=== PATIENT | male | born 1950 | race Caucasian/White ===

== ENCOUNTER 2017-06-30 05:09 | Inpatient (IN) ==
[2017-06-17 11:15] LABS: Apearance,Urine CLEAR (Clear); Bilirubin,Urine Negative (Negative); Blood, Urine Negative (Negative); Glucose,Urine (UA) Negative (Negative); Ketones,Urine 5 mg/dL (Negative); Mucus,Urine Occasional /LPF (Occasional); Nitrite,Urine Negative (Negative); Protein,Urine Negative; RBC,Urine 8 /HPF (0-4); Urine Color Yellow (Yellow); Urine Specific Gravity 1.021 (1.001-1.035); WBC,Urine <1 /HPF (0-6)
[2017-06-17 11:17] LABS: Basophils # 0.1 10*3/uL (0.0-0.2); Eosinophils # 0.4 10*3/uL (0.0-0.87); Eosinophils % 6.6 % (0.00-10.9); Hematocrit 35.9 VOL% (42.0-52.0); Hemoglobin 12.5 GM/DL (14.0-18.0); Immature Granulocytes % 0.2 %; Immature Granulocytes Absolute 0.01 #; Lymphocytes # 2.6 10*3/uL (1.4-4.0); Lymphocytes % 45.3 % (21.2-54.2); Mean Corpuscular HGB Conc 34.8 GM/DL (32-36); Mean Corpuscular Hemoglobin 31 PG (27-34); Mean Corpuscular Volume 88.2 FL (87-102); Mean Platelet Volume 10.3 FL (9.6-12.0); Monocytes # 0.7 10*3/uL (0.11-0.8); Monocytes % 11.7 % (1.7-12.7); Neutrophils % 35.2 % (38.7-73.9); Platelet Count 167 T/CUMM (130-400); Red Blood Count 4.07 MC/CUMM (3.8-5.5); Red Cell Distribution Width 11.9 % (9.3-17.3); White Blood Count 5.8 T/CUMM (4-12)
[2017-06-17 11:24] LABS: PT Patient Result 10.1 SECS; Partial Thromboplastin Time 28.7 SECS (0-40)
[2017-06-17 11:44] LABS: Albumin 3.6 G/DL (3.4-5.0); Band Neutrophils 5 % (0-10); Bilirubin,Total 0.5 MG/DL (0.2-1.0); Calcium 8.7 MG/DL (8.5-10.1); Eosinophils 9 % (0-10); Lymphocytes 45 % (20-55); Nucleated Red Blood Cells 3 (0-5); Osmolality,Calculated 259.7 MOS/KG (273-304); Platelet Estimate Normal; Potassium 4.3 MMOL/L (3.5-5.1); Segmented Neutrophils 39 % (50-85); Total Cells Counted 100; Total Protein 6.7 G/DL (6.4-8.3)
[2017-06-30] MEDS ORDERED: VANCOMYCIN INJ 1,000 MG in SODIUM CHLORIDE 0.9% 250 ML IV ONE (06:00)
[2017-06-30] MEDS ORDERED: ceFAZolin 1,000 MG in SYRINGE 1 EACH IV ONE (06:00)
[2017-06-30] MEDS ORDERED: ceFAZolin 1,000 MG VIAL ONE (08:10)
[2017-06-30] MEDS ORDERED: VANCOMYCIN 1,000 MG VIAL ONE (08:10)
[2017-06-30] MEDS: LACTATED RINGERS 1,000 ML IV SCH (08:15)
[2017-06-30 09:30] LABS: Barbiturates Screen,Urine Negative (Negative); Benzodiazepines Screen,Urine Negative (Negative); Cannabinoid Screen,Urine Negative (Negative); Opiate Screen,Urine Negative (Negative); Phencyclidine Screen,Urine Negative (Negative)
[2017-06-30] MEDS ORDERED: TRANEXAMIC ACID 1,000 MG/10 ML VIAL IV ONE (11:11)
[2017-06-30] MEDS ORDERED: PROMETHAZINE 25 MG/1 ML VIAL IM PRN (12:02)
[2017-06-30] MEDS ORDERED: HYDROmorphone 2 MG/1 ML VIAL IV PRN (12:02)
[2017-06-30] MEDS ORDERED: NALOXONE 0.4 MG/ML VIAL IV PRN (12:02)
[2017-06-30] MEDS ORDERED: ONDANSETRON 4 MG/2 ML VIAL IV PRN ×2 (12:02→12:31)
[2017-06-30] MEDS ORDERED: LACTULOSE 20 GM/30 ML UDCUP PO PRN (12:02)
[2017-06-30] MEDS ORDERED: BISACODYL 10 MG SUPP RECTAL PRN (12:02)
[2017-06-30] MEDS ORDERED: MAGNESIUM HYDROXIDE SUSP 30 ML UDCUP PO PRN (12:02)
[2017-06-30] MEDS ORDERED: PROPOFOL 200 MG/20 ML VIAL IV ONE (12:17)
[2017-06-30] MEDS ORDERED: MIDAZOLAM 2 MG/2 ML VIAL ONE (12:18)
[2017-06-30] MEDS ORDERED: fentaNYL 100 MCG/2 ML VIAL ONE (12:18)
[2017-06-30] MEDS ORDERED: KETAMINE 500 MG/10 ML VIAL ONE (12:18)
[2017-06-30] MEDS ORDERED: LACTATED RINGERS 1,000 ML IV ONE (12:18)
[2017-06-30] MEDS ORDERED: ROPIVACAINE 0.5% 30 ML VIAL ONE (12:20)
[2017-06-30] MEDS ORDERED: ONDANSETRON 4 MG/2 ML VIAL ONE (12:36)
[2017-06-30] MEDS ORDERED: HYDROmorphone 2 MG/1 ML VIAL ONE (12:36)
[2017-06-30] MEDS: HYDROmorphone 2 MG/1 ML VIAL IV PRN ×4 (12:39→13:00)
[2017-06-30] MEDS ORDERED: HYDROmorphone PCA 30 MG/30 ML SYRINGE IV ONE (13:03)
[2017-06-30] MEDS: HYDROmorphone PCA 30 MG/30 ML SYRINGE IV SCH (13:08)
[2017-06-30] MEDS ORDERED: MEPERIDINE 25 MG/1 ML VIAL ONE (13:13)
[2017-06-30] MEDS ORDERED: MEPERIDINE 25 MG/1 ML VIAL IV PRN (13:14)
[2017-06-30] MEDS ORDERED: MORPHINE 2 MG/1 ML SYRINGE IV ONE (13:22)
[2017-06-30] MEDS ORDERED: MORPHINE 10 MG/1 ML VIAL ONE (13:44)
[2017-06-30] MEDS ORDERED: MORPHINE 10 MG/1 ML VIAL IV ONE (14:00)
[2017-06-30] MEDS ORDERED: INFLUENZA VIRUS VACCINE 0.5 ML SYRINGE IM ONE (15:32)
[2017-06-30] MEDS: ceFAZolin 2,000 MG in PREMIX 1 EACH IV SCH (15:35)
[2017-06-30] MEDS: LUBIPROSTONE 24 MCG CAPSULE PO SCH (20:58)
[2017-06-30] MEDS: FONDAPARINUX 2.5 MG/0.5 ML SYRINGE SUBCUT SCH (20:58)
[2017-06-30] MEDS: DOCUSATE SODIUM 100 MG CAPSULE PO SCH (20:58)
[2017-06-30] MEDS: risperiDONE 1 MG TABLET PO SCH (20:58)
[2017-06-30] MEDS: MAGNESIUM OXIDE 400 MG TABLET PO SCH (20:59)
[2017-06-30] MEDS: METOPROLOL SUCCINATE XL 50 MG TABLET PO SCH (20:59)
[2017-06-30] MEDS: OXcarbazepine 300 MG TABLET PO SCH (20:59)
[2017-06-30] MEDS: TEMAZEPAM 7.5 MG CAPSULE PO PRN (21:22)
[2017-07-01] MEDS: TEMAZEPAM 7.5 MG CAPSULE PO PRN ×2 (00:49→20:50)
[2017-07-01] MEDS: ceFAZolin 2,000 MG in PREMIX 1 EACH IV SCH (00:49)
[2017-07-01 07:19] LABS: Basophils # 0.1 10*3/uL (0.0-0.2); Basophils % 0.6 % (0.0-0.8); Eosinophils # 0.1 10*3/uL (0.0-0.87); Eosinophils % 0.7 % (0.00-10.9); Hematocrit 31.7 VOL% (42.0-52.0); Immature Granulocytes % 0.3 %; Immature Granulocytes Absolute 0.03 #; Lymphocytes # 1.9 10*3/uL (1.4-4.0); Lymphocytes % 20.9 % (21.2-54.2); Mean Corpuscular HGB Conc 34.7 GM/DL (32-36); Mean Corpuscular Hemoglobin 30 PG (27-34); Mean Corpuscular Volume 87.6 FL (87-102); Mean Platelet Volume 10.5 FL (9.6-12.0); Monocytes # 0.9 10*3/uL (0.11-0.8); Monocytes % 10.2 % (1.7-12.7); Neutrophils % 67.3 % (38.7-73.9); Platelet Count 178 T/CUMM (130-400); Red Blood Count 3.62 MC/CUMM (3.8-5.5); White Blood Count 8.9 T/CUMM (4-12)
[2017-07-01 07:44] LABS: Calcium 8.2 MG/DL (8.5-10.1); Osmolality,Calculated 266.4 MOS/KG (273-304); Potassium 4.2 MMOL/L (3.5-5.1)
[2017-07-01] MEDS ORDERED: VORTIOXETINE HYDROBROMIDE 5 MG PO SCH (09:00)
[2017-07-01] MEDS: DILTIAZEM CD 180 MG CAPSULE PO SCH (10:34)
[2017-07-01] MEDS: LUBIPROSTONE 24 MCG CAPSULE PO SCH ×2 (10:34→20:50)
[2017-07-01] MEDS: LORATADINE 10 MG TABLET PO SCH (10:34)
[2017-07-01] MEDS: DOCUSATE SODIUM 100 MG CAPSULE PO SCH ×2 (10:35→20:51)
[2017-07-01] MEDS: FUROSEMIDE 20 MG TABLET PO SCH (10:35)
[2017-07-01] MEDS: MAGNESIUM OXIDE 400 MG TABLET PO SCH ×2 (10:35→20:50)
[2017-07-01] MEDS: PANTOPRAZOLE 40 MG TABLET PO SCH (10:35)
[2017-07-01] MEDS: risperiDONE 1 MG TABLET PO SCH ×2 (10:35→20:50)
[2017-07-01] MEDS: ESCITALOPRAM 10 MG TABLET PO SCH (10:35)
[2017-07-01] MEDS: ATORVASTATIN 40 MG TABLET PO SCH (10:35)
[2017-07-01] MEDS: METOPROLOL SUCCINATE XL 50 MG TABLET PO SCH ×2 (10:36→20:50)
[2017-07-01] MEDS: DOXEPIN 25 MG CAPSULE PO SCH (10:36)
[2017-07-01] MEDS: OXcarbazepine 300 MG TABLET PO SCH ×2 (10:39→20:50)
[2017-07-01] MEDS: HYDROmorphone PCA 30 MG/30 ML SYRINGE IV SCH (15:28)
[2017-07-01] MEDS: LACTATED RINGERS 1,000 ML IV SCH (18:25)
[2017-07-01] MEDS: FONDAPARINUX 2.5 MG/0.5 ML SYRINGE SUBCUT SCH (20:50)
[2017-07-01] MEDS: diphenhydrAMINE CAP 25 MG CAPSULE PO PRN (20:50)
[2017-07-02] MEDS: LACTATED RINGERS 1,000 ML IV SCH ×2 (04:45→08:54)
[2017-07-02] MEDS: diphenhydrAMINE CAP 25 MG CAPSULE PO PRN ×2 (06:40→20:57)
[2017-07-02 07:09] LABS: Basophils % 0.4 % (0.0-0.8); Eosinophils # 0.3 10*3/uL (0.0-0.87); Eosinophils % 2.7 % (0.00-10.9); Hematocrit 30.3 VOL% (42.0-52.0); Hemoglobin 10.3 GM/DL (14.0-18.0); Immature Granulocytes % 0.4 %; Immature Granulocytes Absolute 0.04 #; Lymphocytes # 2.8 10*3/uL (1.4-4.0); Lymphocytes % 29.9 % (21.2-54.2); Mean Corpuscular Hemoglobin 30 PG (27-34); Mean Corpuscular Volume 88.1 FL (87-102); Mean Platelet Volume 11.4 FL (9.6-12.0); Monocytes # 0.9 10*3/uL (0.11-0.8); Monocytes % 9.8 % (1.7-12.7); Neutrophils # 5.3 10*3/uL (1.4-7.4); Neutrophils % 56.8 % (38.7-73.9); Platelet Count 176 T/CUMM (130-400); Red Blood Count 3.44 MC/CUMM (3.8-5.5); Red Cell Distribution Width 12.2 % (9.3-17.3); White Blood Count 9.3 T/CUMM (4-12)
[2017-07-02] MEDS: ESCITALOPRAM 10 MG TABLET PO SCH (09:43)
[2017-07-02] MEDS: LUBIPROSTONE 24 MCG CAPSULE PO SCH ×2 (09:43→20:57)
[2017-07-02] MEDS: FUROSEMIDE 20 MG TABLET PO SCH (09:43)
[2017-07-02] MEDS: risperiDONE 1 MG TABLET PO SCH ×2 (09:43→20:57)
[2017-07-02] MEDS: LORATADINE 10 MG TABLET PO SCH (09:44)
[2017-07-02] MEDS: ATORVASTATIN 40 MG TABLET PO SCH (09:44)
[2017-07-02] MEDS: OXcarbazepine 300 MG TABLET PO SCH ×2 (09:44→20:57)
[2017-07-02] MEDS: METOPROLOL SUCCINATE XL 50 MG TABLET PO SCH ×2 (09:44→20:59)
[2017-07-02] MEDS: PANTOPRAZOLE 40 MG TABLET PO SCH (09:44)
[2017-07-02] MEDS: DOCUSATE SODIUM 100 MG CAPSULE PO SCH ×2 (09:44→20:57)
[2017-07-02] MEDS: DOXEPIN 25 MG CAPSULE PO SCH (09:44)
[2017-07-02] MEDS: MAGNESIUM OXIDE 400 MG TABLET PO SCH ×2 (09:44→20:57)
[2017-07-02] MEDS: DILTIAZEM CD 180 MG CAPSULE PO SCH (09:44)
[2017-07-02] MEDS: FONDAPARINUX 2.5 MG/0.5 ML SYRINGE SUBCUT SCH (20:58)
[2017-07-03] MEDS: MAGNESIUM OXIDE 400 MG TABLET PO SCH (09:03)
[2017-07-03] MEDS: risperiDONE 1 MG TABLET PO SCH (09:03)
[2017-07-03] MEDS: DOXEPIN 25 MG CAPSULE PO SCH (09:03)
[2017-07-03] MEDS: ESCITALOPRAM 10 MG TABLET PO SCH (09:03)
[2017-07-03] MEDS: DOCUSATE SODIUM 100 MG CAPSULE PO SCH (09:04)
[2017-07-03] MEDS: OXcarbazepine 300 MG TABLET PO SCH (09:04)
[2017-07-03] MEDS: METOPROLOL SUCCINATE XL 50 MG TABLET PO SCH (09:04)
[2017-07-03] MEDS: FUROSEMIDE 20 MG TABLET PO SCH (09:04)
[2017-07-03] MEDS: DILTIAZEM CD 180 MG CAPSULE PO SCH (09:04)
[2017-07-03] MEDS: LUBIPROSTONE 24 MCG CAPSULE PO SCH (09:04)
[2017-07-03] MEDS: LORATADINE 10 MG TABLET PO SCH (09:04)
[2017-07-03] MEDS: PANTOPRAZOLE 40 MG TABLET PO SCH (09:04)
[2017-07-03] MEDS: ATORVASTATIN 40 MG TABLET PO SCH (09:05)
[2017-07-03 16:32] VITALS: BP 123/71
== END 2017-07-03 17:00 | disposition swing bed (61) | DRG 470 ==
LOC: N.OR 05:09 → N.SDSINP 05:10 → N.3E 12:02
PROVIDERS: ADMIT Orthopaedic Surgery; ATTEND Orthopaedic Surgery

== ENCOUNTER 2017-09-24 12:22 | Inpatient (IN) ==
[2017-09-24] MEDS ORDERED: ENOXAPARIN 100 MG/ML SYRINGE SUBCUT STA (12:37)
[2017-09-24] MEDS ORDERED: ASPIRIN 325 MG TABLET PO STA (12:37)
[2017-09-24] MEDS ORDERED: ONDANSETRON 4 MG/2 ML VIAL IV PRN (12:37)
[2017-09-24] MEDS ORDERED: MORPHINE 2 MG/1 ML SYRINGE IV PRN (12:37)
[2017-09-24] MEDS ORDERED: NITROGLYCERIN 2% OINT 1 INCH/GM PACK TOP STA (12:44)
[2017-09-24] MEDS ORDERED: ALUM/MAG/SIMETH/LIDO VISC 1:1 30 ML BOTTLE PO STA (12:44)
[2017-09-24] MEDS ORDERED: NITROGLYCERIN SL 0.4 MG TABLET SL PRN (12:44)
[2017-09-24 12:53] LABS: Basophils # 0.1 10*3/uL (0.0-0.2); Basophils % 0.8 % (0.0-0.8); Eosinophils # 0.1 10*3/uL (0.0-0.87); Eosinophils % 2.2 % (0.00-10.9); Hematocrit 40.1 VOL% (42.0-52.0); Hemoglobin 12.8 GM/DL (14.0-18.0); Immature Granulocytes % 0.2 %; Immature Granulocytes Absolute 0.01 #; Lymphocytes # 2.6 10*3/uL (1.4-4.0); Lymphocytes % 43.3 % (21.2-54.2); Mean Corpuscular HGB Conc 31.9 GM/DL (32-36); Mean Corpuscular Hemoglobin 30 PG (27-34); Mean Corpuscular Volume 94.1 FL (87-102); Mean Platelet Volume 11.1 FL (9.6-12.0); Monocytes # 0.5 10*3/uL (0.11-0.8); Neutrophils # 2.6 10*3/uL (1.4-7.4); Neutrophils % 44.5 % (38.7-73.9); Platelet Count 158 T/CUMM (130-400); Red Blood Count 4.26 MC/CUMM (3.8-5.5); Red Cell Distribution Width 15.8 % (9.3-17.3); White Blood Count 5.9 T/CUMM (4-12)
[2017-09-24] MEDS ORDERED: NITROGLYCERIN 2% OINT 1 INCH/GM PACK TOP ONE (12:58)
[2017-09-24] MEDS ORDERED: ENOXAPARIN 120 MG/0.8 ML SYRINGE SUBCUT ONE (12:58)
[2017-09-24] MEDS ORDERED: ASPIRIN 325 MG TABLET ONE (12:59)
[2017-09-24] MEDS ORDERED: ALUM/MAG/SIMETH/LIDO VISC 1:1 30 ML BOTTLE PO ONE (12:59)
[2017-09-24 13:08] LABS: Calcium 8.1 MG/DL (8.5-10.1); Osmolality,Calculated 286.1 MOS/KG (273-304); Potassium 4.1 MMOL/L (3.5-5.1)
[2017-09-24 13:19] LABS: Alanine Aminotransferase 30 U/L (16-61); Albumin 3.3 G/DL (3.4-5.0); Alkaline Phosphatase 91 U/L (45-117); Aspartate Amino Transferase 19 U/L (0-37); Bilirubin,Total < 0.39 MG/DL (0.2-1.0); Blood Urea Nitrogen 18 MG/DL (7-18); Calcium 8.5 MG/DL (8.5-10.1); Glucose 127 MG/DL (74-106); PT Patient Result 10.2 SECS; Partial Thromboplastin Time 24.9 SECS (0-40); Potassium 4.2 MMOL/L (3.5-5.1); Sodium 143 MMOL/L (136-145); Total Protein 6.3 G/DL (6.4-8.3)
[2017-09-24] MEDS ORDERED: ACETAMINOPHEN 325 MG TABLET PO PRN (14:52)
[2017-09-24] MEDS ORDERED: traZODone 50 MG TABLET PO PRN (17:20)
[2017-09-24] MEDS ORDERED: IBUPROFEN 800 MG TABLET PO PRN (17:20)
[2017-09-24] MEDS: busPIRone 10 MG TABLET PO SCH (22:01)
[2017-09-24] MEDS: OXcarbazepine 300 MG TABLET PO SCH (22:01)
[2017-09-24] MEDS: risperiDONE 1 MG TABLET PO SCH (22:01)
[2017-09-25] MEDS: risperiDONE 1 MG TABLET PO SCH ×2 (08:52→21:17)
[2017-09-25] MEDS: ATORVASTATIN 40 MG TABLET PO SCH (08:52)
[2017-09-25] MEDS: busPIRone 10 MG TABLET PO SCH ×3 (08:52→21:18)
[2017-09-25] MEDS: OXcarbazepine 300 MG TABLET PO SCH ×2 (08:52→21:16)
[2017-09-25] MEDS: ESCITALOPRAM 10 MG TABLET PO SCH (08:53)
[2017-09-25] MEDS ORDERED: DILTIAZEM CD 180 MG CAPSULE PO SCH (09:00)
[2017-09-25] MEDS ORDERED: LOSARTAN 50 MG TABLET PO SCH (09:00)
[2017-09-25 11:45] LABS: Apearance,Urine CLEAR (Clear); Bilirubin,Urine Negative (Negative); Blood, Urine Negative (Negative); Glucose,Urine (UA) Negative (Negative); Ketones,Urine Negative (Negative); Nitrite,Urine Negative (Negative); Protein,Urine Negative; Squamous Epithelial Cell,Urine Occasional /HPF (0-10); Urine Color Yellow (Yellow); Urine Specific Gravity 1.012 (1.001-1.035); Urine Urobilinogen < 2.0 EU/DL (0.2-1.0); WBC,Urine <1 /HPF (0-6)
[2017-09-25] MEDS ORDERED: ENOXAPARIN 40 MG/0.4 ML SYRINGE SUBCUT SCH (12:00)
[2017-09-25 12:38] LABS: Barbiturates Screen,Urine Negative (Negative); Benzodiazepines Screen,Urine Negative (Negative); Cannabinoid Screen,Urine Negative (Negative); Opiate Screen,Urine Negative (Negative); Phencyclidine Screen,Urine Negative (Negative)
[2017-09-25] MEDS ORDERED: REGADENOSON 0.4 MG/5 ML SYRINGE IV ONE (14:55)
[2017-09-25] MEDS: traZODone 50 MG TABLET PO SCH (21:17)
[2017-09-26 06:08] LABS: Risk Ratio 4.81; VLDL CHOLESTEROL 29.2 MG/DL
[2017-09-26] MEDS: LOSARTAN 50 MG TABLET PO SCH (06:28)
[2017-09-26 08:50] LABS: Basophils # 0.1 10*3/uL (0.0-0.2); Basophils % 0.8 % (0.0-0.8); Eosinophils # 0.2 10*3/uL (0.0-0.87); Eosinophils % 2.1 % (0.00-10.9); Hematocrit 45.2 VOL% (42.0-52.0); Immature Granulocytes % 0.1 %; Immature Granulocytes Absolute 0.01 #; Lymphocytes % 55.1 % (21.2-54.2); Mean Corpuscular HGB Conc 32.7 GM/DL (32-36); Mean Corpuscular Hemoglobin 30 PG (27-34); Mean Corpuscular Volume 92.1 FL (87-102); Mean Platelet Volume 10.7 FL (9.6-12.0); Monocytes # 0.5 10*3/uL (0.11-0.8); Monocytes % 6.3 % (1.7-12.7); Neutrophils # 2.6 10*3/uL (1.4-7.4); Neutrophils % 35.6 % (38.7-73.9); Platelet Count 176 T/CUMM (130-400); Red Blood Count 4.91 MC/CUMM (3.8-5.5); Red Cell Distribution Width 15.2 % (9.3-17.3); White Blood Count 7.2 T/CUMM (4-12)
[2017-09-26 08:58] LABS: Hemoglobin 14.8 GM/DL (14.0-18.0)
[2017-09-26 09:09] LABS: Calcium 9.1 MG/DL (8.5-10.1); Osmolality,Calculated 280.3 MOS/KG (273-304); Potassium 4.4 MMOL/L (3.5-5.1)
[2017-09-26 09:14] LABS: Eosinophils 4 % (0-10); Lymphocytes 52 % (20-55); Segmented Neutrophils 39 % (50-85); Total Cells Counted 100
[2017-09-26 09:15] LABS: Atypical Lymphocytes Few; Hypochromasia 1+; Microcytosis 1+; Platelet Estimate Adequate
[2017-09-26] MEDS ORDERED: diphenhydrAMINE CAP 25 MG CAPSULE PO ONE ×2 (09:30→09:31)
[2017-09-26] MEDS ORDERED: SODIUM CHLORIDE 0.9% 1,000 ML IV SCH ×3 (09:30→10:00)
[2017-09-26] MEDS ORDERED: ceFAZolin 1,000 MG VIAL IRRIG ONE ×2 (09:30→09:31)
[2017-09-26] MEDS ORDERED: DIAZEPAM 5 MG TABLET PO ONE ×2 (09:30→09:31)
[2017-09-26] MEDS ORDERED: ceFAZolin 1,000 MG in SYRINGE 1 EACH IV ONE (09:31)
[2017-09-26] MEDS ORDERED: diphenhydrAMINE CAP 50 MG CAPSULE ONE (09:35)
[2017-09-26] MEDS ORDERED: ceFAZolin 1,000 MG VIAL ONE (09:51)
[2017-09-26] MEDS ORDERED: MIDAZOLAM 2 MG/2 ML VIAL ONE ×2 (09:51→10:17)
[2017-09-26] MEDS ORDERED: LIDOCAINE 1% 20 ML VIAL ONE (09:51)
[2017-09-26] MEDS ORDERED: fentaNYL 100 MCG/2 ML VIAL ONE (09:51)
[2017-09-26] MEDS ORDERED: TISSUE ADHESIVE 1 EACH APPLICATOR TOP ONE (09:51)
[2017-09-26] MEDS ORDERED: diphenhydrAMINE 50 MG/1 ML VIAL ONE (10:16)
[2017-09-26] MEDS: risperiDONE 1 MG TABLET PO SCH ×2 (12:00→20:56)
[2017-09-26] MEDS: busPIRone 10 MG TABLET PO SCH ×3 (12:00→20:56)
[2017-09-26] MEDS: ATORVASTATIN 40 MG TABLET PO SCH (12:00)
[2017-09-26] MEDS: ESCITALOPRAM 10 MG TABLET PO SCH (12:00)
[2017-09-26] MEDS: OXcarbazepine 300 MG TABLET PO SCH ×2 (12:00→20:56)
[2017-09-26] MEDS: traZODone 50 MG TABLET PO SCH (20:56)
[2017-09-27 03:11] LABS: Basophils # 0.1 10*3/uL (0.0-0.2); Basophils % 0.7 % (0.0-0.8); Eosinophils # 0.2 10*3/uL (0.0-0.87); Eosinophils % 3.3 % (0.00-10.9); Hematocrit 43.7 VOL% (42.0-52.0); Immature Granulocytes % 0.1 %; Immature Granulocytes Absolute 0.01 #; Lymphocytes # 2.3 10*3/uL (1.4-4.0); Lymphocytes % 32.5 % (21.2-54.2); Mean Corpuscular Hemoglobin 30 PG (27-34); Mean Corpuscular Volume 92.6 FL (87-102); Mean Platelet Volume 10.7 FL (9.6-12.0); Monocytes # 0.6 10*3/uL (0.11-0.8); Monocytes % 8.7 % (1.7-12.7); Neutrophils # 3.9 10*3/uL (1.4-7.4); Neutrophils % 54.7 % (38.7-73.9); Platelet Count 172 T/CUMM (130-400); Red Blood Count 4.72 MC/CUMM (3.8-5.5); Red Cell Distribution Width 15.3 % (9.3-17.3)
[2017-09-27 05:41] LABS: Calcium 8.4 MG/DL (8.5-10.1)
[2017-09-27 05:42] LABS: Osmolality,Calculated 282.4 MOS/KG (273-304); Potassium 4.1 MMOL/L (3.5-5.1)
[2017-09-27] MEDS: LOSARTAN 50 MG TABLET PO SCH (06:11)
[2017-09-27] MEDS: ATORVASTATIN 40 MG TABLET PO SCH (08:58)
[2017-09-27] MEDS: risperiDONE 1 MG TABLET PO SCH (08:58)
[2017-09-27] MEDS: busPIRone 10 MG TABLET PO SCH (08:58)
[2017-09-27] MEDS: OXcarbazepine 300 MG TABLET PO SCH (08:58)
[2017-09-27] MEDS: ESCITALOPRAM 10 MG TABLET PO SCH (08:58)
[2017-09-27 13:18] VITALS: BP 138/62
[2017-09-27] MEDS ORDERED: FLECAINIDE 50 MG TABLET PO SCH (21:00)
== END 2017-09-27 13:47 | disposition home or self-care (01) | DRG 244 ==
LOC: EDBD → EDUNIT# → N.ED 12:22 → N.EDINP 14:00 → INTOOBSV 14:52 → N.EDINP 17:14 → N.TELEN 17:39
PROVIDERS: ADMIT Internal Medicine Geriatric Medicine; ATTEND Internal Medicine Geriatric Medicine

== ENCOUNTER 2018-08-26 15:51 | Inpatient (IN) ==
[2018-08-26] MEDS ORDERED: SODIUM CHLORIDE 0.9% 1,000 ML IV STA (17:18)
[2018-08-26] MEDS ORDERED: THIAMINE INJ 100 MG, FOLIC ACID INJ 1 MG, MAGNESIUM SULF INJ 2 GM, MULTIVITAMIN INJ 10 ... IV ONE (17:18)
[2018-08-26 17:33] LABS: Basophils # 0.1 10*3/uL (0.0-0.2); Basophils % 0.6 % (0.0-0.8); Eosinophils # 0.1 10*3/uL (0.0-0.87); Eosinophils % 0.5 % (0.00-10.9); Immature Granulocytes % 0.6 %; Immature Granulocytes Absolute 0.06 #; Lymphocytes # 2.8 10*3/uL (1.4-4.0); Lymphocytes % 29.2 % (21.2-54.2); Mean Corpuscular HGB Conc 34.1 GM/DL (32-36); Mean Corpuscular Hemoglobin 31 PG (27-34); Mean Corpuscular Volume 91.5 FL (87-102); Mean Platelet Volume 11.7 FL (9.6-12.0); Monocytes # 0.7 10*3/uL (0.11-0.8); Monocytes % 6.9 % (1.7-12.7); Neutrophils % 62.2 % (38.7-73.9); Platelet Count 178 T/CUMM (130-400); Red Blood Count 4.48 MC/CUMM (3.8-5.5); Red Cell Distribution Width 12.6 % (9.3-17.3); White Blood Count 9.7 T/CUMM (4-12)
[2018-08-26] MEDS ORDERED: MAGNESIUM SULF RIDER 2 GM in PREMIX 1 EACH IV PRN (17:39)
[2018-08-26] MEDS ORDERED: POTASSIUM CHLORIDE RIDER 20 MEQ in PREMIX 1 EACH IV PRN (17:39)
[2018-08-26] MEDS ORDERED: POTASSIUM CHLORIDE RIDER 10 MEQ in PREMIX 1 EACH IV PRN (17:39)
[2018-08-26] MEDS ORDERED: diphenhydrAMINE CAP 25 MG CAPSULE PO PRN (17:39)
[2018-08-26] MEDS ORDERED: PROMETHAZINE 25 MG/1 ML VIAL IM PRN (17:39)
[2018-08-26] MEDS ORDERED: MORPHINE 4 MG/1 ML VIAL IV PRN (17:39)
[2018-08-26] MEDS ORDERED: MAGNESIUM SULF RIDER 4 GM in PREMIX 1 EACH IV PRN (17:39)
[2018-08-26] MEDS ORDERED: ONDANSETRON 4 MG/2 ML VIAL IV PRN (17:39)
[2018-08-26] MEDS ORDERED: ACETAMINOPHEN 325 MG TABLET PO PRN (17:39)
[2018-08-26 17:44] LABS: PT Patient Result 10.5 SECS
[2018-08-26 17:48] LABS: Alanine Aminotransferase 24 U/L (16-61); Albumin 3.3 G/DL (3.4-5.0); Alkaline Phosphatase 83 U/L (45-117); Aspartate Amino Transferase 19 U/L (0-37); Bilirubin,Total < 0.39 MG/DL (0.2-1.0); Blood Urea Nitrogen 6 MG/DL (7-18); Calcium 8.1 MG/DL (8.5-10.1); Glucose 126 MG/DL (74-106); Osmolality,Calculated 256.1 MOS/KG (273-304); Potassium 3.1 MMOL/L (3.5-5.1); Sodium 128 MMOL/L (136-145); Total Protein 7.2 G/DL (6.4-8.3)
[2018-08-26 18:09] LABS: Folate 9.7 NG/ML (5.4-24.0)
[2018-08-26 18:46] LABS: Barbiturates Screen,Urine Negative (Negative); Benzodiazepines Screen,Urine Negative (Negative); Cannabinoid Screen,Urine Negative (Negative); Opiate Screen,Urine Negative (Negative); Phencyclidine Screen,Urine Negative (Negative)
[2018-08-26 18:56] LABS: Apearance,Urine CLEAR (Clear); Bilirubin,Urine Negative (Negative); Blood, Urine Negative (Negative); Glucose,Urine (UA) Negative (Negative); Ketones,Urine 5 mg/dL (Negative); Nitrite,Urine Negative (Negative); Protein,Urine Negative; RBC,Urine 1 /HPF (0-4); Urine Color Yellow (Yellow); Urine Specific Gravity 1.004 (1.001-1.035); Urine Urobilinogen < 2.0 EU/DL (0.2-1.0); WBC,Urine 1 /HPF (0-6)
[2018-08-26] MEDS: ALBUTEROL/IPRATROPIUM 3 ML NEB RESP TX SCH (19:34)
[2018-08-26] MEDS ORDERED: SODIUM CHLORIDE 0.9% 1,000 ML IV SCH (20:30)
[2018-08-26] MEDS: chlordiazePOXIDE 25 MG CAPSULE PO SCH (20:45)
[2018-08-26] MEDS: risperiDONE 1 MG TABLET PO SCH (20:46)
[2018-08-26] MEDS: APIXABAN 5 MG TABLET PO SCH (20:46)
[2018-08-26] MEDS: OXcarbazepine 300 MG TABLET PO SCH (20:46)
[2018-08-26] MEDS: busPIRone 10 MG TABLET PO SCH (20:47)
[2018-08-26] MEDS: ATORVASTATIN 40 MG TABLET PO SCH (20:48)
[2018-08-26] MEDS: traZODone 50 MG TABLET PO SCH (20:48)
[2018-08-26] MEDS: DOCUSATE SODIUM 100 MG CAPSULE PO SCH (20:48)
[2018-08-26] MEDS ORDERED: PANTOPRAZOLE 40 MG VIAL IV SCH (21:00)
[2018-08-26] MEDS ORDERED: FAMOTIDINE 20 MG TABLET PO SCH (21:00)
[2018-08-26 21:41] LABS: Cholesterol 85 MG/DL (50-200); HDL Cholesterol 29 MG/DL (40-60); Risk Ratio 2.93; Thyroid Stimulating Hormone 0.769 uIU/ml (0.358-3.74); Triglycerides 78 MG/DL (2-150); VLDL CHOLESTEROL 15.6 MG/DL
[2018-08-26] MEDS: BACLOFEN 10 MG TABLET PO SCH (22:39)
[2018-08-27] MEDS: chlordiazePOXIDE 25 MG CAPSULE PO SCH ×8 (00:58→20:52)
[2018-08-27] MEDS: ALBUTEROL/IPRATROPIUM 3 ML NEB RESP TX SCH ×4 (01:24→20:22)
[2018-08-27] MEDS: 1: SODIUM CHLORIDE 0.9% 1,000 ML 2: THIAMINE INJ 100 MG, FOLIC ACID INJ 1 MG, MULTIVITA IV SCH ×3 (02:22→16:14)
[2018-08-27] MEDS ORDERED: SODIUM CHLORIDE 0.9% 1,000 ML IV SCH (04:00)
[2018-08-27] MEDS: BACLOFEN 10 MG TABLET PO SCH ×2 (06:06→14:02)
[2018-08-27 06:33] LABS: Albumin 2.8 G/DL (3.4-5.0); Bilirubin,Total 0.8 MG/DL (0.2-1.0); Calcium 8.1 MG/DL (8.5-10.1); Osmolality,Calculated 269.1 MOS/KG (273-304); Potassium 4.2 MMOL/L (3.5-5.1); Total Protein 6.4 G/DL (6.4-8.3)
[2018-08-27 07:14] LABS: Basophils # 0.1 10*3/uL (0.0-0.2); Basophils % 0.7 % (0.0-0.8); Eosinophils # 0.2 10*3/uL (0.0-0.87); Eosinophils % 2.2 % (0.00-10.9); Hematocrit 42.8 VOL% (42.0-52.0); Hemoglobin 14.2 GM/DL (14.0-18.0); Immature Granulocytes % 0.8 %; Immature Granulocytes Absolute 0.06 #; Lymphocytes # 2.6 10*3/uL (1.4-4.0); Lymphocytes % 33.4 % (21.2-54.2); Mean Corpuscular HGB Conc 33.2 GM/DL (32-36); Mean Corpuscular Hemoglobin 31 PG (27-34); Mean Corpuscular Volume 94.3 FL (87-102); Mean Platelet Volume 12.7 FL (9.6-12.0); Monocytes # 0.6 10*3/uL (0.11-0.8); Monocytes % 8.1 % (1.7-12.7); Neutrophils # 4.2 10*3/uL (1.4-7.4); Neutrophils % 54.8 % (38.7-73.9); Red Blood Count 4.54 MC/CUMM (3.8-5.5); White Blood Count 7.7 T/CUMM (4-12)
[2018-08-27 07:18] LABS: Platelet Count 101 T/CUMM (130-400)
[2018-08-27 07:35] LABS: Hypochromasia 1+; Platelet Estimate Decreased
[2018-08-27] MEDS: ESCITALOPRAM 10 MG TABLET PO SCH (08:01)
[2018-08-27] MEDS: busPIRone 10 MG TABLET PO SCH ×4 (08:01→15:17)
[2018-08-27] MEDS: THIAMINE 100 MG TABLET PO SCH (08:01)
[2018-08-27] MEDS: OXcarbazepine 300 MG TABLET PO SCH ×2 (08:01→20:54)
[2018-08-27] MEDS: DOCUSATE SODIUM 100 MG CAPSULE PO SCH ×4 (08:01→20:52)
[2018-08-27] MEDS: risperiDONE 1 MG TABLET PO SCH ×2 (08:01→20:52)
[2018-08-27] MEDS: APIXABAN 5 MG TABLET PO SCH ×4 (08:01→20:52)
[2018-08-27] MEDS ORDERED: THIAMINE INJ 100 MG, FOLIC ACID INJ 1 MG, MULTIVITAMIN INJ 10 ML in SODIUM CHLORIDE 0.9... IV SCH (18:00)
[2018-08-27 22:24] LABS: ABG Base Excess 2.1 MMOL/L (-2.5-2.5); ABG HCO3 26.2 MMOL/L (20-26); ABG Oxygen Saturation 94.8 % (95-100); ABG PH 7.248 (7.35-7.45); ABG TCO2 28.9 MMOL/L (23-27); Allen Test Positive
[2018-08-27 22:27] LABS: ABG PCO2 74.2 MM HG (35-48)
[2018-08-28] MEDS: BACLOFEN 10 MG TABLET PO SCH ×4 (00:25→22:35)
[2018-08-28] MEDS: traZODone 50 MG TABLET PO SCH ×2 (00:25→20:47)
[2018-08-28] MEDS: ATORVASTATIN 40 MG TABLET PO SCH ×2 (00:25→20:47)
[2018-08-28] MEDS: busPIRone 10 MG TABLET PO SCH ×4 (00:25→20:47)
[2018-08-28] MEDS: chlordiazePOXIDE 25 MG CAPSULE PO SCH ×8 (00:26→20:00)
[2018-08-28] MEDS: DOCUSATE SODIUM 100 MG CAPSULE PO SCH ×3 (00:27→20:47)
[2018-08-28] MEDS: risperiDONE 1 MG TABLET PO SCH ×3 (00:28→20:47)
[2018-08-28] MEDS: APIXABAN 5 MG TABLET PO SCH ×3 (00:28→20:47)
[2018-08-28] MEDS: OXcarbazepine 300 MG TABLET PO SCH ×3 (00:29→20:47)
[2018-08-28] MEDS: ALBUTEROL/IPRATROPIUM 3 ML NEB RESP TX SCH ×4 (00:39→18:51)
[2018-08-28 02:07] LABS: ABG HCO3 27.9 MMOL/L (20-26); ABG Oxygen Saturation 96.4 % (95-100); ABG PH 7.327 (7.35-7.45); ABG PO2 86.7 MM HG (80-95); ABG TCO2 28.3 MMOL/L (23-27); Allen Test Positive; Pt O2 Delivery Device BIPAP
[2018-08-28] MEDS: 1: SODIUM CHLORIDE 0.9% 1,000 ML 2: THIAMINE INJ 100 MG, FOLIC ACID INJ 1 MG, MULTIVITA IV SCH ×2 (02:11→15:34)
[2018-08-28 04:24] LABS: Basophils % 0.4 % (0.0-0.8); Eosinophils # 0.3 10*3/uL (0.0-0.87); Eosinophils % 4.7 % (0.00-10.9); Hematocrit 37.4 VOL% (42.0-52.0); Hemoglobin 11.7 GM/DL (14.0-18.0); Immature Granulocytes % 0.3 %; Immature Granulocytes Absolute 0.02 #; Lymphocytes # 2.3 10*3/uL (1.4-4.0); Lymphocytes % 32.9 % (21.2-54.2); Mean Corpuscular HGB Conc 31.3 GM/DL (32-36); Mean Corpuscular Hemoglobin 31 PG (27-34); Mean Corpuscular Volume 98.7 FL (87-102); Mean Platelet Volume 11.3 FL (9.6-12.0); Monocytes # 0.5 10*3/uL (0.11-0.8); Monocytes % 7.4 % (1.7-12.7); Neutrophils # 3.8 10*3/uL (1.4-7.4); Neutrophils % 54.3 % (38.7-73.9); Platelet Count 134 T/CUMM (130-400); Red Blood Count 3.79 MC/CUMM (3.8-5.5); Red Cell Distribution Width 13.4 % (9.3-17.3); White Blood Count 7.1 T/CUMM (4-12)
[2018-08-28 04:43] LABS: ABG Base Excess 4.2 MMOL/L (-2.5-2.5); ABG HCO3 28.1 MMOL/L (20-26); ABG Oxygen Saturation 96.4 % (95-100); ABG PCO2 60.7 MM HG (35-48); ABG PO2 86.1 MM HG (80-95); ABG TCO2 28.5 MMOL/L (23-27); Allen Test Positive; Pt O2 Delivery Device BIPAP
[2018-08-28 04:56] LABS: Alanine Aminotransferase 21 U/L (16-61); Albumin 2.7 G/DL (3.4-5.0); Alkaline Phosphatase 66 U/L (45-117); Aspartate Amino Transferase 19 U/L (0-37); Bilirubin,Total < 0.39 MG/DL (0.2-1.0); Blood Urea Nitrogen 15 MG/DL (7-18); Calcium 8.1 MG/DL (8.5-10.1); Glucose 124 MG/DL (74-106); Osmolality,Calculated 282.3 MOS/KG (273-304); Potassium 4.2 MMOL/L (3.5-5.1); Sodium 141 MMOL/L (136-145); Total Protein 6.1 G/DL (6.4-8.3)
[2018-08-28] MEDS ORDERED: ALBUTEROL 2.5 MG/3 ML NEB RESP TX PRN (05:03)
[2018-08-28] MEDS ORDERED: cloNIDine 0.1 MG TABLET PO ONE (08:04)
[2018-08-28] MEDS ORDERED: NIFEdipine 10 MG CAPSULE PO PRN (08:06)
[2018-08-28] MEDS: ESCITALOPRAM 10 MG TABLET PO SCH (08:47)
[2018-08-28] MEDS: THIAMINE 100 MG TABLET PO SCH (08:47)
[2018-08-28] MEDS: PANTOPRAZOLE 40 MG TABLET PO SCH (08:47)
[2018-08-28] MEDS: METOPROLOL TARTRATE 25 MG TABLET PO SCH ×2 (08:53→20:47)
[2018-08-28] MEDS ORDERED: SODIUM PHOSPHATE ENEMA 133 ML BOTTLE RECTAL PRN (18:08)
[2018-08-28] MEDS ORDERED: POLYETHYLENE GLYCOL POWDER 17 GM PACK PO PRN (18:08)
[2018-08-28] MEDS: cloNIDine 0.1 MG TABLET PO SCH (20:48)
[2018-08-29] MEDS: chlordiazePOXIDE 25 MG CAPSULE PO SCH ×5 (00:19→21:03)
[2018-08-29] MEDS: ALBUTEROL/IPRATROPIUM 3 ML NEB RESP TX SCH ×4 (01:28→19:50)
[2018-08-29] MEDS: 1: SODIUM CHLORIDE 0.9% 1,000 ML 2: THIAMINE INJ 100 MG, FOLIC ACID INJ 1 MG, MULTIVITA IV SCH ×2 (03:14→16:08)
[2018-08-29 04:25] LABS: Basophils % 0.5 % (0.0-0.8); Eosinophils # 0.3 10*3/uL (0.0-0.87); Eosinophils % 4.7 % (0.00-10.9); Hematocrit 36.4 VOL% (42.0-52.0); Hemoglobin 11.3 GM/DL (14.0-18.0); Immature Granulocytes % 0.5 %; Immature Granulocytes Absolute 0.03 #; Lymphocytes # 2.3 10*3/uL (1.4-4.0); Lymphocytes % 34.5 % (21.2-54.2); Mean Corpuscular Hemoglobin 31 PG (27-34); Mean Corpuscular Volume 99.5 FL (87-102); Mean Platelet Volume 10.6 FL (9.6-12.0); Monocytes # 0.6 10*3/uL (0.11-0.8); Monocytes % 8.3 % (1.7-12.7); Neutrophils # 3.4 10*3/uL (1.4-7.4); Neutrophils % 51.5 % (38.7-73.9); Platelet Count 102 T/CUMM (130-400); Red Blood Count 3.66 MC/CUMM (3.8-5.5); Red Cell Distribution Width 13.4 % (9.3-17.3); White Blood Count 6.6 T/CUMM (4-12)
[2018-08-29 04:46] LABS: Albumin 2.6 G/DL (3.4-5.0); Bilirubin,Total 0.4 MG/DL (0.2-1.0)
[2018-08-29 04:47] LABS: Osmolality,Calculated 279.4 MOS/KG (273-304); Potassium 4.2 MMOL/L (3.5-5.1)
[2018-08-29] MEDS: BACLOFEN 10 MG TABLET PO SCH ×3 (05:31→21:03)
[2018-08-29] MEDS: ESCITALOPRAM 10 MG TABLET PO SCH (08:27)
[2018-08-29] MEDS: risperiDONE 1 MG TABLET PO SCH ×2 (08:27→21:02)
[2018-08-29] MEDS: THIAMINE 100 MG TABLET PO SCH (08:27)
[2018-08-29] MEDS: busPIRone 10 MG TABLET PO SCH ×3 (08:27→21:02)
[2018-08-29] MEDS: OXcarbazepine 300 MG TABLET PO SCH ×2 (08:27→21:03)
[2018-08-29] MEDS: METOPROLOL TARTRATE 25 MG TABLET PO SCH ×2 (08:28→21:02)
[2018-08-29] MEDS: DOCUSATE SODIUM 100 MG CAPSULE PO SCH ×2 (08:28→21:02)
[2018-08-29] MEDS: cloNIDine 0.1 MG TABLET PO SCH ×2 (08:28→21:02)
[2018-08-29] MEDS: PANTOPRAZOLE 40 MG TABLET PO SCH (08:29)
[2018-08-29] MEDS: APIXABAN 5 MG TABLET PO SCH ×2 (08:29→21:02)
[2018-08-29] MEDS: traZODone 50 MG TABLET PO SCH (21:02)
[2018-08-29] MEDS: ATORVASTATIN 40 MG TABLET PO SCH (21:02)
[2018-08-30] MEDS: ALBUTEROL/IPRATROPIUM 3 ML NEB RESP TX SCH ×4 (00:51→19:30)
[2018-08-30] MEDS: 1: SODIUM CHLORIDE 0.9% 1,000 ML 2: THIAMINE INJ 100 MG, FOLIC ACID INJ 1 MG, MULTIVITA IV SCH ×2 (02:09→14:53)
[2018-08-30 05:32] LABS: Basophils % 0.8 % (0.0-0.8); Eosinophils # 0.3 10*3/uL (0.0-0.87); Hematocrit 37.9 VOL% (42.0-52.0); Hemoglobin 11.9 GM/DL (14.0-18.0); Immature Granulocytes % 0.4 %; Immature Granulocytes Absolute 0.02 #; Lymphocytes # 2.2 10*3/uL (1.4-4.0); Lymphocytes % 41.6 % (21.2-54.2); Mean Corpuscular HGB Conc 31.4 GM/DL (32-36); Mean Corpuscular Hemoglobin 31 PG (27-34); Mean Corpuscular Volume 98.2 FL (87-102); Mean Platelet Volume 11.6 FL (9.6-12.0); Monocytes # 0.5 10*3/uL (0.11-0.8); Monocytes % 9.4 % (1.7-12.7); Neutrophils # 2.2 10*3/uL (1.4-7.4); Neutrophils % 42.8 % (38.7-73.9); Platelet Count 115 T/CUMM (130-400); Red Blood Count 3.86 MC/CUMM (3.8-5.5); Red Cell Distribution Width 13.4 % (9.3-17.3); White Blood Count 5.2 T/CUMM (4-12)
[2018-08-30 05:42] LABS: Albumin 2.9 G/DL (3.4-5.0); Bilirubin,Total 1.3 MG/DL (0.2-1.0); Calcium 8.1 MG/DL (8.5-10.1); Osmolality,Calculated 280.3 MOS/KG (273-304); Potassium 4.1 MMOL/L (3.5-5.1); Total Protein 6.2 G/DL (6.4-8.3)
[2018-08-30] MEDS: BACLOFEN 10 MG TABLET PO SCH ×3 (05:56→21:00)
[2018-08-30] MEDS: chlordiazePOXIDE 25 MG CAPSULE PO SCH ×3 (05:56→21:00)
[2018-08-30] MEDS: risperiDONE 1 MG TABLET PO SCH ×2 (11:00→20:57)
[2018-08-30] MEDS: busPIRone 10 MG TABLET PO SCH ×3 (11:00→20:58)
[2018-08-30] MEDS: cloNIDine 0.1 MG TABLET PO SCH ×2 (11:00→20:59)
[2018-08-30] MEDS: ESCITALOPRAM 10 MG TABLET PO SCH (11:00)
[2018-08-30] MEDS: OXcarbazepine 300 MG TABLET PO SCH ×2 (11:00→20:59)
[2018-08-30] MEDS: METOPROLOL TARTRATE 25 MG TABLET PO SCH ×2 (11:01→20:58)
[2018-08-30] MEDS: DOCUSATE SODIUM 100 MG CAPSULE PO SCH ×2 (11:01→20:58)
[2018-08-30] MEDS: THIAMINE 100 MG TABLET PO SCH (11:01)
[2018-08-30] MEDS: APIXABAN 5 MG TABLET PO SCH ×2 (11:01→20:59)
[2018-08-30] MEDS: PANTOPRAZOLE 40 MG TABLET PO SCH (11:01)
[2018-08-30] MEDS ORDERED: cloNIDine 0.1 MG TABLET PO SCH (13:30)
[2018-08-30] MEDS: ATORVASTATIN 40 MG TABLET PO SCH (20:57)
[2018-08-30] MEDS: traZODone 50 MG TABLET PO SCH (20:57)
[2018-08-31] MEDS: ALBUTEROL/IPRATROPIUM 3 ML NEB RESP TX SCH ×4 (00:40→19:40)
[2018-08-31] MEDS: 1: SODIUM CHLORIDE 0.9% 1,000 ML 2: THIAMINE INJ 100 MG, FOLIC ACID INJ 1 MG, MULTIVITA IV SCH ×2 (01:20→14:19)
[2018-08-31 04:26] LABS: Basophils % 0.4 % (0.0-0.8); Eosinophils # 0.2 10*3/uL (0.0-0.87); Eosinophils % 4.2 % (0.00-10.9); Hemoglobin 11.8 GM/DL (14.0-18.0); Immature Granulocytes % 0.8 %; Immature Granulocytes Absolute 0.04 #; Lymphocytes % 37.7 % (21.2-54.2); Mean Corpuscular HGB Conc 31.9 GM/DL (32-36); Mean Corpuscular Hemoglobin 32 PG (27-34); Mean Corpuscular Volume 98.9 FL (87-102); Mean Platelet Volume 11.2 FL (9.6-12.0); Monocytes # 0.6 10*3/uL (0.11-0.8); Monocytes % 10.6 % (1.7-12.7); Neutrophils # 2.5 10*3/uL (1.4-7.4); Neutrophils % 46.3 % (38.7-73.9); Platelet Count 116 T/CUMM (130-400); Red Blood Count 3.74 MC/CUMM (3.8-5.5); Red Cell Distribution Width 13.4 % (9.3-17.3); White Blood Count 5.3 T/CUMM (4-12)
[2018-08-31 04:59] LABS: Bilirubin,Total 0.7 MG/DL (0.2-1.0); Calcium 8.3 MG/DL (8.5-10.1); Potassium 4.2 MMOL/L (3.5-5.1); Total Protein 6.4 G/DL (6.4-8.3)
[2018-08-31] MEDS: chlordiazePOXIDE 25 MG CAPSULE PO SCH ×3 (05:52→21:05)
[2018-08-31] MEDS: BACLOFEN 10 MG TABLET PO SCH ×3 (05:53→21:05)
[2018-08-31 08:59] LABS: Hepatitis B Surface Ag Quant < 0.10 Index; Hepatitis B Surface Ag Result Negative (Negative)
[2018-08-31] MEDS: busPIRone 10 MG TABLET PO SCH ×3 (09:21→21:04)
[2018-08-31] MEDS: risperiDONE 1 MG TABLET PO SCH ×2 (09:21→21:04)
[2018-08-31] MEDS: OXcarbazepine 300 MG TABLET PO SCH ×2 (09:21→21:04)
[2018-08-31] MEDS: METOPROLOL TARTRATE 25 MG TABLET PO SCH ×2 (09:22→21:04)
[2018-08-31] MEDS: THIAMINE 100 MG TABLET PO SCH (09:22)
[2018-08-31] MEDS: cloNIDine 0.1 MG TABLET PO SCH ×3 (09:22→21:04)
[2018-08-31] MEDS: APIXABAN 5 MG TABLET PO SCH ×2 (09:22→21:05)
[2018-08-31] MEDS: PANTOPRAZOLE 40 MG TABLET PO SCH (09:22)
[2018-08-31] MEDS: DOCUSATE SODIUM 100 MG CAPSULE PO SCH ×2 (09:22→21:04)
[2018-08-31] MEDS: ESCITALOPRAM 10 MG TABLET PO SCH (09:22)
[2018-08-31 09:25] LABS: Hepatitis C Virus Ab Quant 0.06 Index; Hepatitis C Virus Ab Result Negative (Negative)
[2018-08-31 09:28] LABS: Hepatitis B Core IgM Quant 0.12 Index; Hepatitis B Core IgM Result Negative (Negative)
[2018-08-31 09:29] LABS: Hepatitis A Ab IgM Result Negative (Negative)
[2018-08-31 09:35] LABS: Hepatitis A Ab IgM Quant 0.13 Index
[2018-08-31 13:09] LABS: HIV Antigen/Antibody Result Nonreactive (Nonreactive)
[2018-08-31] MEDS: ATORVASTATIN 40 MG TABLET PO SCH (21:04)
[2018-08-31] MEDS: traZODone 50 MG TABLET PO SCH (21:04)
[2018-09-01] MEDS: 1: SODIUM CHLORIDE 0.9% 1,000 ML 2: THIAMINE INJ 100 MG, FOLIC ACID INJ 1 MG, MULTIVITA IV SCH ×2 (00:57→15:01)
[2018-09-01] MEDS: ALBUTEROL/IPRATROPIUM 3 ML NEB RESP TX SCH ×4 (01:21→19:49)
[2018-09-01] MEDS: BACLOFEN 10 MG TABLET PO SCH ×3 (05:57→21:15)
[2018-09-01] MEDS: chlordiazePOXIDE 25 MG CAPSULE PO SCH ×3 (05:57→21:14)
[2018-09-01] MEDS: PANTOPRAZOLE 40 MG TABLET PO SCH (09:17)
[2018-09-01] MEDS: ESCITALOPRAM 10 MG TABLET PO SCH (09:18)
[2018-09-01] MEDS: OXcarbazepine 300 MG TABLET PO SCH ×2 (09:18→21:14)
[2018-09-01] MEDS: THIAMINE 100 MG TABLET PO SCH (09:18)
[2018-09-01] MEDS: METOPROLOL TARTRATE 25 MG TABLET PO SCH ×2 (09:18→21:14)
[2018-09-01] MEDS: MULTIVITAMIN (BEROCCA) TABLET PO SCH (09:18)
[2018-09-01] MEDS: risperiDONE 1 MG TABLET PO SCH ×2 (09:18→21:14)
[2018-09-01] MEDS: APIXABAN 5 MG TABLET PO SCH ×2 (09:18→21:14)
[2018-09-01] MEDS: busPIRone 10 MG TABLET PO SCH ×3 (09:18→21:14)
[2018-09-01] MEDS: DOCUSATE SODIUM 100 MG CAPSULE PO SCH ×2 (09:18→21:16)
[2018-09-01] MEDS: cloNIDine 0.1 MG TABLET PO SCH ×3 (09:22→21:14)
[2018-09-01] MEDS: SODIUM CHLORIDE 0.65% NASAL SPRAY 45 ML BOTTLE BOTH NARES PRN (18:22)
[2018-09-01] MEDS: traZODone 50 MG TABLET PO SCH (21:14)
[2018-09-01] MEDS: ATORVASTATIN 40 MG TABLET PO SCH (21:14)
[2018-09-02] MEDS: ALBUTEROL/IPRATROPIUM 3 ML NEB RESP TX SCH ×2 (01:05→07:10)
[2018-09-02] MEDS: 1: SODIUM CHLORIDE 0.9% 1,000 ML 2: THIAMINE INJ 100 MG, FOLIC ACID INJ 1 MG, MULTIVITA IV SCH (01:06)
[2018-09-02] MEDS: BACLOFEN 10 MG TABLET PO SCH (06:28)
[2018-09-02] MEDS: chlordiazePOXIDE 25 MG CAPSULE PO SCH (06:28)
[2018-09-02] MEDS: SODIUM CHLORIDE 0.65% NASAL SPRAY 45 ML BOTTLE BOTH NARES PRN (06:28)
[2018-09-02] MEDS: MULTIVITAMIN (BEROCCA) TABLET PO SCH (08:29)
[2018-09-02] MEDS: ESCITALOPRAM 10 MG TABLET PO SCH (08:29)
[2018-09-02] MEDS: cloNIDine 0.1 MG TABLET PO SCH (08:30)
[2018-09-02] MEDS: APIXABAN 5 MG TABLET PO SCH (08:30)
[2018-09-02] MEDS: risperiDONE 1 MG TABLET PO SCH (08:30)
[2018-09-02] MEDS: busPIRone 10 MG TABLET PO SCH (08:30)
[2018-09-02] MEDS: THIAMINE 100 MG TABLET PO SCH (08:30)
[2018-09-02] MEDS: METOPROLOL TARTRATE 25 MG TABLET PO SCH (08:30)
[2018-09-02] MEDS: DOCUSATE SODIUM 100 MG CAPSULE PO SCH (08:30)
[2018-09-02] MEDS: OXcarbazepine 300 MG TABLET PO SCH (08:30)
[2018-09-02] MEDS: PANTOPRAZOLE 40 MG TABLET PO SCH (08:30)
[2018-09-02 12:22] VITALS: BP 121/75
== END 2018-09-02 13:26 | disposition swing bed (61) | DRG 896 ==
LOC: EDBD → EDUNIT# → N.ED 15:51 → SUATTDRO 17:39 → N.EDINP 17:39 → N.ICU 18:07 → N.5E 08-27 16:08 → N.ICU 08-28 00:15 → N.4E 08-29 14:02
PROVIDERS: ADMIT Internal Medicine; ATTEND Internal Medicine

== ENCOUNTER 2019-02-17 10:39 | Inpatient (IN) ==
[2019-02-17] MEDS ORDERED: ONDANSETRON 4 MG/2 ML VIAL IV PRN (12:18)
[2019-02-17] MEDS ORDERED: ALUMINUM/MAGNES/SIMETH MAX STR 30 ML UDCUP PO PRN (12:18)
[2019-02-17] MEDS ORDERED: traZODone 50 MG TABLET PO PRN (12:18)
[2019-02-17] MEDS ORDERED: SENNA 8.6 MG TABLET PO PRN (12:18)
[2019-02-17] MEDS ORDERED: ACETAMINOPHEN 500 MG TABLET PO PRN (12:18)
[2019-02-17] MEDS ORDERED: METHOCARBAMOL 750 MG TABLET PO PRN (12:21)
[2019-02-17] MEDS ORDERED: HydrOXYzine PAMOATE 25 MG CAPSULE PO PRN (12:21)
[2019-02-17] MEDS ORDERED: THIAMINE INJ 100 MG, FOLIC ACID INJ 1 MG, MULTIVITAMIN INJ 10 ML in SODIUM CHLORIDE 0.9... IV ONE (12:21)
[2019-02-17] MEDS ORDERED: chlordiazePOXIDE 25 MG CAPSULE PO SCH (12:30)
[2019-02-17 12:49] LABS: Basophils % 0.5 % (0.0-0.8); Eosinophils # 0.1 10*3/uL (0.0-0.87); Eosinophils % 1.6 % (0.00-10.9); Hematocrit 36.2 VOL% (42.0-52.0); Hemoglobin 11.6 GM/DL (14.0-18.0); Immature Granulocytes % 0.5 %; Immature Granulocytes Absolute 0.03 #; Lymphocytes # 2.2 10*3/uL (1.4-4.0); Lymphocytes % 35.6 % (21.2-54.2); Mean Corpuscular Volume 90.7 FL (87-102); Mean Platelet Volume 10.4 FL (9.6-12.0); Neutrophils % 54.8 % (38.7-73.9); Platelet Count 114 T/CUMM (130-400); Red Blood Count 3.99 MC/CUMM (3.8-5.5); Red Cell Distribution Width 13.7 % (9.3-17.3); White Blood Count 6.3 T/CUMM (4-12)
[2019-02-17 12:58] LABS: PT Patient Result 10.7 SECS
[2019-02-17] MEDS: THIAMINE 100 MG TABLET PO SCH (13:00)
[2019-02-17] MEDS: FOLIC ACID 1 MG TABLET PO SCH (13:00)
[2019-02-17] MEDS: MULTIVITAMIN (CENTRUM) TABLET PO SCH (13:00)
[2019-02-17] MEDS: chlordiazePOXIDE 25 MG CAPSULE PO SCH ×2 (13:00→21:40)
[2019-02-17 13:15] LABS: Alanine Aminotransferase 22 U/L (16-61); Albumin 3.5 G/DL (3.4-5.0); Alkaline Phosphatase 92 U/L (45-117); Amylase 35 U/L (25-115); Aspartate Amino Transferase 14 U/L (0-37); Blood Urea Nitrogen 9 MG/DL (7-18); Calcium 8.4 MG/DL (8.5-10.1); Glucose 122 MG/DL (74-106); Osmolality,Calculated 269.1 MOS/KG (273-304); Total Protein 6.6 G/DL (6.4-8.3)
[2019-02-17] MEDS: LORazepam 2 MG/1 ML VIAL IV PRN ×2 (13:30→18:27)
[2019-02-17] MEDS ORDERED: ALBUTEROL/IPRATROPIUM 3 ML NEB RESP TX PRN (14:53)
[2019-02-17] MEDS: busPIRone 10 MG TABLET PO SCH ×2 (16:28→21:39)
[2019-02-17] MEDS: NICOTINE 21 MG/24 HR PATCH TRANSDERM SCH (21:39)
[2019-02-17] MEDS: traZODone 50 MG TABLET PO SCH (21:39)
[2019-02-17] MEDS: APIXABAN 5 MG TABLET PO SCH (21:40)
[2019-02-17] MEDS: OXcarbazepine 300 MG TABLET PO SCH (21:40)
[2019-02-17] MEDS: ATORVASTATIN 40 MG TABLET PO SCH (21:40)
[2019-02-17] MEDS: METOPROLOL TARTRATE 25 MG TABLET PO SCH (21:40)
[2019-02-17] MEDS: FAMOTIDINE 20 MG/2 ML VIAL IV SCH (21:49)
[2019-02-18] MEDS: chlordiazePOXIDE 25 MG CAPSULE PO SCH ×3 (05:07→20:25)
[2019-02-18 05:21] LABS: Risk Ratio 2.48
[2019-02-18 05:32] LABS: Apearance,Urine CLEAR (Clear); Bacteria,Urine Occasional /HPF (Few); Bilirubin,Urine Negative (Negative); Blood, Urine Negative (Negative); Glucose,Urine (UA) Negative (Negative); Ketones,Urine Negative (Negative); Nitrite,Urine Negative (Negative); Protein,Urine Negative; RBC,Urine 2 /HPF (0-4); Urine Color Straw (Yellow); Urine Specific Gravity 1.004 (1.001-1.035); Urine Urobilinogen < 2.0 EU/DL (0.2-1.0); WBC,Urine <1 /HPF (0-6)
[2019-02-18 05:55] LABS: Barbiturates Screen,Urine Negative (Negative); Benzodiazepines Screen,Urine Positive (Negative); Cannabinoid Screen,Urine Negative (Negative); Opiate Screen,Urine Negative (Negative); Phencyclidine Screen,Urine Negative (Negative)
[2019-02-18] MEDS ORDERED: ESCITALOPRAM 10 MG TABLET PO SCH (07:00)
[2019-02-18] MEDS: THIAMINE 100 MG TABLET PO SCH (09:09)
[2019-02-18] MEDS: MULTIVITAMIN (CENTRUM) TABLET PO SCH (09:09)
[2019-02-18] MEDS: METOPROLOL TARTRATE 25 MG TABLET PO SCH ×3 (09:10→22:59)
[2019-02-18] MEDS: OXcarbazepine 300 MG TABLET PO SCH ×2 (09:10→20:25)
[2019-02-18] MEDS: APIXABAN 5 MG TABLET PO SCH ×2 (09:10→20:25)
[2019-02-18] MEDS: FOLIC ACID 1 MG TABLET PO SCH (09:10)
[2019-02-18] MEDS: risperiDONE 1 MG TABLET PO SCH (09:11)
[2019-02-18] MEDS: busPIRone 10 MG TABLET PO SCH ×3 (09:11→20:30)
[2019-02-18] MEDS: FAMOTIDINE 20 MG/2 ML VIAL IV SCH ×2 (09:13→20:26)
[2019-02-18] MEDS: NICOTINE 21 MG/24 HR PATCH TRANSDERM SCH (09:17)
[2019-02-18] MEDS: ATORVASTATIN 40 MG TABLET PO SCH (20:24)
[2019-02-18] MEDS: traZODone 50 MG TABLET PO SCH (20:25)
[2019-02-18] MEDS: LORazepam 2 MG/1 ML VIAL IV PRN (20:30)
[2019-02-19] MEDS: chlordiazePOXIDE 25 MG CAPSULE PO SCH (03:44)
[2019-02-19] MEDS: busPIRone 10 MG TABLET PO SCH ×3 (09:09→20:04)
[2019-02-19] MEDS: OXcarbazepine 300 MG TABLET PO SCH ×2 (09:09→20:04)
[2019-02-19] MEDS: risperiDONE 1 MG TABLET PO SCH (09:09)
[2019-02-19] MEDS: FOLIC ACID 1 MG TABLET PO SCH (09:10)
[2019-02-19] MEDS: MULTIVITAMIN (CENTRUM) TABLET PO SCH (09:10)
[2019-02-19] MEDS: THIAMINE 100 MG TABLET PO SCH (09:10)
[2019-02-19] MEDS: APIXABAN 5 MG TABLET PO SCH ×2 (09:10→20:05)
[2019-02-19] MEDS: ESCITALOPRAM 10 MG TABLET PO SCH (09:10)
[2019-02-19] MEDS: METOPROLOL TARTRATE 25 MG TABLET PO SCH ×2 (09:10→20:04)
[2019-02-19] MEDS: LORazepam 2 MG/1 ML VIAL IV PRN (09:15)
[2019-02-19] MEDS: FAMOTIDINE 20 MG/2 ML VIAL IV SCH ×2 (09:17→20:05)
[2019-02-19] MEDS: NICOTINE 21 MG/24 HR PATCH TRANSDERM SCH (09:19)
[2019-02-19] MEDS ORDERED: LORazepam 2 MG/1 ML VIAL IV PRN (10:10)
[2019-02-19] MEDS: ATORVASTATIN 40 MG TABLET PO SCH (20:04)
[2019-02-19] MEDS: traZODone 50 MG TABLET PO SCH (20:04)
[2019-02-20 08:32] VITALS: BP 142/85
[2019-02-20] MEDS: NICOTINE 21 MG/24 HR PATCH TRANSDERM SCH (09:15)
[2019-02-20] MEDS: THIAMINE 100 MG TABLET PO SCH (09:16)
[2019-02-20] MEDS: OXcarbazepine 300 MG TABLET PO SCH (09:16)
[2019-02-20] MEDS: ESCITALOPRAM 10 MG TABLET PO SCH (09:16)
[2019-02-20] MEDS: MULTIVITAMIN (CENTRUM) TABLET PO SCH (09:16)
[2019-02-20] MEDS: APIXABAN 5 MG TABLET PO SCH (09:16)
[2019-02-20] MEDS: FAMOTIDINE 20 MG/2 ML VIAL IV SCH (09:16)
[2019-02-20] MEDS: FOLIC ACID 1 MG TABLET PO SCH (09:16)
[2019-02-20] MEDS: risperiDONE 1 MG TABLET PO SCH (09:16)
[2019-02-20] MEDS: busPIRone 10 MG TABLET PO SCH (09:16)
[2019-02-20] MEDS: METOPROLOL TARTRATE 25 MG TABLET PO SCH (09:16)
== END 2019-02-20 12:17 | disposition home or self-care (01) | DRG 897 ==
LOC: N.4E 11:50 → SUATTDRO 11:50
PROVIDERS: ADMIT Internal Medicine; ATTEND Emergency Medicine